=== PATIENT | female | born 1975 | race Caucasian/White ===

== ENCOUNTER 2018-12-18 18:58 | Emergency (ER) | payer MEDICAID ==
[~2018-12-18] VITALS: Ht 152.4 cm; Wt 71.7 kg
[2018-12-18 19:10] VITALS: BP 137/90
--- NOTE | 2018-12-18 19:15 | NUR ---
PT TAKEN TO BED 7
--- NOTE | 2018-12-18 19:18 | NUR ---
43/F PRESENTED TO ED WITH C/O HEADACHE AND R FLANK PAIN X4 DAYS. PT REPORTS NAUSEA, DENIES VOMIT/FEVER/DIARRHEA. STATES PAINFUL URINATION. PAIN 9/10. EVEN UNLABORED BREATHING NO SIGNS OF DISTRESS. HAS NOT TAKEN ANY MEDICATIONS TO TX SYMPTOMS. URINE CUP AT BEDSIDE. HX: DENIES RX: DENIES
--- NOTE | 2018-12-18 20:42 | NUR ---
Dr. Espitia examining patient.
[2018-12-18] MEDS ORDERED: ONDANSETRON 4 MG ODT PO ONE (20:45)
[2018-12-18] MEDS ORDERED: KETOROLAC 30 MG/ML VIAL IM ONE (20:45)
--- NOTE | 2018-12-18 20:57 | NUR ---
PT TAKEN TO CT VIA WHEELCHAIR
--- NOTE | 2018-12-18 21:10 | NUR ---
PT RETURN FROM CT
--- NOTE | 2018-12-18 22:37 | NUR ---
PT LAYING IN BED. NO SIGNS OF DISTRESS. STATES SHE FEELS BETTER. WILL CONTINUE TO MONITOR.
[2018-12-18 23:38] VITALS: BP 126/85
== END 2018-12-18 23:38 | disposition home or self-care (01) ==
LOC: MED 18:58
DX: R51 Headache (principal); R11.2 Nausea with vomiting, unspecified; M54.5 Low back pain; Z87.440 Personal history of urinary (tract) infections
CPT/HCPCS: 74176; 81002; 81025; 96372; 99284; J1885; Q0162